=== PATIENT | female | born 1990 | race Caucasian/White ===

== ENCOUNTER 2016-07-06 18:26 | Emergency (ER) | payer MEDICAID ==
--- NOTE | 2016-07-06 19:38 | C.PDOC ---
History Of Present Illness Patient is a 25 year old female who presents to the ER with a complaint of a rectal bleed that began on Monday. Patient reports going to [facility], however, she left due to how over crowded the ER was. Patient states she first noticed blood when wiping on Monday, then on Monday noticed it was mixed in her stool and she reports having the most blood in her stool today. Patient also notes having constipation on Monday, however, she states she did not force a bowel movement. Patient also report an episode of diarrhea on Monday. Patient reports a painful stinging pain, as well as lower abdominal cramping. Patient reports she is currently not menstruating and has regular menstrual cycles. Patient denies change in diet, nausea, vomiting, fever or chills. Chief Complaint (Nursing): GI Problem History Per: Patient History/Exam Limitations: no limitations Onset/Duration Of Symptoms: Days (Since Monday) Current Symptoms Are (Timing): Still Present Number Of Bleeding Episodes: Multiple: Amount of Blood Loss: Medium Quality Of Discomfort: Cramping (Abdominal), Other (Stinging, rectal) Associated Symptoms: Rectal Bleeding, Bloody Diarrhea. denies: Nausea, Vomiting , Other (Fever, Chills) Modifying Factors: None Recent travel outside of the [place]: No Past Medical History Reviewed: Historical Data, Nursing Documentation, Vital Signs Vital Signs: Last Vital Signs Temp 98.3 F 07/06/16 18:34 Pulse 84 07/06/16 18:34 Resp 18 07/06/16 18:34 BP 137/85 07/06/16 18:34 Pulse Ox 100 07/06/16 19:42 - Medical History PMH: No Chronic Diseases Surgical History: No Surg Hx Family History: States: Unknown Family Hx - Social History Hx Alcohol Use: No Hx Substance Use: No - Immunization History Hx Tetanus Toxoid Vaccination: No Hx Influenza Vaccination: No Hx Pneumococcal Vaccination: No Review Of Systems Constitutional: Negative for: Fever, Chills Gastrointestinal: Positive for: Abdominal Pain (Cramping), Rectal Pain (Stinging ), Other (Rectal bleeding). Negative for: Nausea, Vomiting Physical Exam - Physical Exam Appears: Well, Non-toxic Skin: Normal Color, Warm, Dry Head: Atraumatic, Normacephalic Oral Mucosa: Moist Chest: Symmetrical, No Tenderness Cardiovascular: Rhythm Regular, No Murmur Respiratory: Normal Breath Sounds, No Rales, No Rhonchi, No Wheezing Gastrointestinal/Abdominal: Soft, No Tenderness Rectal: Hemorrhoids (Anterior, appears to have spontaneously bled, no longer engorged, rupture site visualized.) Neurological/Psych: Oriented x3, Normal Speech, Normal Cognition ED Course And Treatment O2 Sat by Pulse Oximetry: 100 (Room air) Pulse Ox Interpretation: Normal Disposition - Disposition Disposition: HOME/ ROUTINE Disposition Time: 20:06 Condition: STABLE Additional Instructions: Do a sitz bath several times a day and apply the hydrocortisone cream. Try to eat a high fiber diet. Instructions: Hemorrhoids (ED) - Clinical Impression Clinical Impression: Hemorrhoids - Scribe Statement The provider has reviewed the documentation as recorded by the Scribalana Mace All medical record entries made by the Scribe were at my direction and personally dictated by me. I have reviewed the chart and agree that the record accurately reflects my personal performance of the history, physical exam, medical decision making, and the department course for this patient. I have also personally directed, reviewed, and agree with the discharge instructions and disposition.
[2016-07-06 20:12] VITALS: BP 129/82; PULSE 81; RESP 16; TEMP 98.1; O2SAT 97
== END 2016-07-06 20:12 | disposition home or self-care (01) ==
LOC: C.ER 18:26
DX: K64.9 Unspecified hemorrhoids (principal)